=== PATIENT | female | born 1955 | race Caucasian/White ===

== ENCOUNTER 2020-01-19 13:23 | Outpatient (CLI) | payer SELFPAY ==
--- NOTE | 2020-01-19 | ECG_ITS ---
Measurements Intervals [place] Rate: 73 P: 52 NC: 150 QRS: -10 QRSD: 110 T: 31 QT: 387 QTc: 427 Interpretive Statements SINUS RHYTHM INCOMPLETE LEFT BUNDLE BRANCH BLOCK CANNOT RULE OUT SEPTAL INFARCT, AGE INDETERMINATE BORDERLINE ST ABNORMALITY- LATERAL LEADS ABNORMAL ECG Electronically Signed On 01-19-2020 14:29:31 FIELD TECHNICAL ASSISTANT by Irwin Marcus D.O.
== END 2020-01-19 13:24 | disposition home or self-care (01) ==
DX: H33.012 Retinal detachment with single break, left eye (principal); I44.7 Left bundle-branch block, unspecified
CPT/HCPCS: 93005

== ENCOUNTER 2020-09-09 18:21 | Emergency (ER) | payer MEDICARE, OTHER, SELFPAY ==
[2020-09-09 18:44] VITALS: BP 212/62; PULSE 56; RESP 20; TEMP 36.2; O2SAT 100
--- NOTE | 2020-09-09 19:14 | ED.RECABL ---
HPI - Recheck/Abnormal Lab/Rx General Chief Complaint: Recheck/Abnormal Lab/Rx Stated Complaint: BLOOD PRESSURE HIGH Time Seen by Provider: 09/09/20 19:14 Source: patient and family Mode of arrival: ambulatory Limitations: no limitations History of Present Illness HPI narrative: Patient is a 65-year-old with a history of hypertension who presents for evaluation of elevated blood pressure readings. Patient presented to her primary care physician's office after being noncompliant with her blood pressure medication over the past year. States she was there for preop clearance for cataract surgery and was noted to have high blood pressure and prompted to come to the emergency department. Patient states she feels well, no headache, blurry vision, no chest pain, no shortness of breath, no flank pain. No weakness, lightheadedness or dizziness. After clarifying with patient, patient states she has been taking Diltiazem 180 mg daily, but was told to take this twice a day by Dr. Mai before he retired. She says she has been taking it only once a day, but she tells me she did not know this was a medication used to treat blood pressure and no one ever explained that Diltiazem is a blood pressure medication. Related Data Home Medications Medication Instructions Recorded Confirmed diltiazem HCl 180 mg 180 mg PO DAILY 10/05/19 09/09/20 capsule,extended release 24 hr Allergies Allergy/AdvReac Type Severity Reaction Status Date / Time Kflzssb-Ipe-Mga Reductase Allergy Severe MUSCLE/BONE Verified 09/09/20 10:19 Inhibitor ACHES AND PAINS simvastatin Allergy Unknown muscle pain Verified 09/09/20 10:19 Review of Systems Review of Systems: Narrative: CONSTITUTIONAL: Denies fever EYES: Denies visual changes ENT: Denies rhinorrhea, congestion, sore throat, or otalgia. CARDIOVASCULAR: Denies chest pain, palpitations, or edema. RESPIRATORY: Denies cough or dyspnea. GASTROINTESTINAL: Denies abdominal pain, nausea, vomiting SKIN: Denies rash or itching. MUSCULOSKELETAL: Denies back pain NEUROLOGIC: Denies headache, numbness, or weakness. FOR[facility]LY [facility], [facility] Past Medical History Medical History (Updated 09/09/20 @ 20:53 by Luz Maria Mock MD) Atrial fibrillation (~1997) Pericarditis (~1983) Surgical History Surgical History History of appendectomy (~1964) History of colonoscopy (~11/27/12) History of foot surgery (~10/25/13) History of loop electrosurgical excision procedure (LEEP) (~1984) Hx of cholecystectomy (~12/26/13) Family History Family History Sibling Diabetes mellitus Family history of mental disorder Family history of bipolar disorder Acute myocardial infarction Family history of malignant neoplasm of breast in first degree relative Mother Cerebrovascular accident Social History Social History Smoking status: Never smoker Alcohol intake: never Exam Narrative: Exam Narrative: GENERAL: Awake, alert, conversant HEAD: Normocephalic, atraumatic. EYES: PERRLA and EOMI. ENT: Nares clear, no rhinorrhea or epistaxis. Mucous membranes moist. NECK: Supple. CHEST: No respiratory distress, breathing even and non labored HEART: Regular rate, sinus rhythm ABDOMEN:Non distended, non tender EXTREMITIES: Normal range of motion. No edema. SKIN: Warm, dry, no rash. NEURO:No focal deficits. Alert and oriented x3 Course Vital Signs Vital signs: Vital Signs Temperature 36.2 C L 09/09/20 18:44 Pulse Rate 56 L 09/09/20 18:44 Respiratory Rate 20 09/09/20 18:44 Blood Pressure 212/62 H 09/09/20 18:44 Pulse Oximetry 100 09/09/20 18:44 Temperature 36.2 C L 09/09/20 18:44 Pulse Rate 56 L 09/09/20 21:08 Respiratory Rate 20 09/09/20 18:44 Blood Pressure 127/51 L 09/09/20 21:08 Pulse Oximetry 100 09/09/20 20:25 MDM - Recheck/
--- NOTE | 2020-09-09 19:33 | ECG_ITS ---
Measurements Intervals [place] Rate: 52 P: 35 AL: 146 QRS: -16 QRSD: 114 T: 13 QT: 435 QTc: 405 Interpretive Statements SINUS BRADYCARDIA LEFT VENTRICULAR HYPERTROPHY AND ST-T CHANGE BORDERLINE ST-T WAVE ABNORMALITY- INF/HIGH LAT LEADS BORDERLINE ECG Electronically Signed On 09-09-2020 21:30:26 CDT by Irwin Marcus D.O.
[2020-09-09 20:00] LABS: Basophils Absolute Auto 0.1 K/mm3 (0.0-0.1); Basophils Percent Auto 0.5 % (0.2-1.2); Eosinophils Absolute Auto 0.5 K/mm3 (0-0.3); Eosinophils Percent Auto 5.8 % (0-4.4); Hematocrit 37.6 % (37.0-47.0); Hemoglobin 12.5 g/dL (12.0-15.0); Immature Granulocyte Absolute 0.03 K/mm3 (0.00-0.031); Immature Granulocyte Percent A 0.3 % (0-0.5); Lymphocytes Absolute Auto 2.74 K/mm3 (0.9-3.2); Lymphocytes Percent Auto 29.9 % (18.3-44.2); Mean Corpuscular HGB Conc 33.2 g/dl (32-36); Mean Corpuscular Hemoglobin 27.3 pg (26-34); Mean Corpuscular Volume 82.1 fl (80-100); Mean Platelet Volume 9.1 fl (7.4-10.4); Monocytes Absolute Auto 0.6 K/mm3 (0.1-0.6); Monocytes Percent Auto 6.1 % (2.6-8.5); Neutrophils Absolute Auto 5.3 K/mm3 (1.3-6.7); Neutrophils Percent Auto 57.4 % (45.5-73.1); Platelet Count Result 332 k/mm3 (150-375); Red Blood Count 4.58 M/mm3 (4.2-5.4); Red Cell Distribution Width 13.4 % (11.5-14.5); White Blood Count 9.2 K/mm3 (4.5-10.0)
[2020-09-09 20:10] LABS: Anion Gap 10 mmol/L (8-16); Blood Urea Nitrogen 10 mg/dL (7-17); Calcium 9.9 mg/dL (8.4-10.2); Carbon Dioxide 26 mmol/L (22-30); Chloride 103 mmol/L (98-107); Estimated Glomerular Filt Rate > 60; Glucose 146 mg/dL (65-105); Potassium 3.6 mmol/L (3.4-5.0); Sodium 139 mmol/L (137-145)
[2020-09-09 20:25] VITALS: BP 188/73; PULSE 52; O2SAT 100
[2020-09-09] MEDS: hydrALAZINE HCL 20 MG/ML VIAL IV PUSH (20:32)
[2020-09-09 20:52] VITALS: BP 129/53; PULSE 51
[2020-09-09 21:08] VITALS: BP 127/51; PULSE 56
== END 2020-09-09 21:26 | disposition home or self-care (01) ==
PROVIDERS: Emergency Provider Emergency Medicine; PCP Family Medicine
DX: I10 Essential (primary) hypertension (principal); I48.91 Unspecified atrial fibrillation; R00.1 Bradycardia, unspecified; R94.31 Abnormal electrocardiogram [ECG] [EKG]
CPT/HCPCS: 36415; 80048; 85025; 93005; 96374; 99284; J0360

== ENCOUNTER 2022-02-22 10:09 | Outpatient (CLI) | payer MEDICARE, OTHER, SELFPAY ==
--- NOTE | ~2022-02-22 | MM_ITS ---
EXAMINATION: MM screening [facility] BI w shaye HISTORY: Screening mammogram, family history of breast cancer in her sister. TECHNIQUE: Craniocaudal and mediolateral oblique 3-D tomosynthesis images were obtained and synthetic 2-D images were generated. CAD analysis was submitted and interpreted. COMPARISON: 10/09/2016, 07/21/2015 BREAST PARENCHYMAL COMPOSITION: There are scattered areas of fibroglandular density. FINDINGS: There is no suspicious mass, calcification, or architectural distortion to suggest malignan cy in either breast. There has been no suspicious interval change. IMPRESSION: 1. No mammographic evidence of malignancy. 2. Recommend routine screening mammography in one year. BI-RADS Category 1: Negative Reviewed, dictated and finalized at location A.
== END 2022-02-22 10:10 | disposition home or self-care (01) ==
PROVIDERS: PCP Family Medicine; Visit Provider Nurse Practitioner Family
DX: Z12.31 Encounter for screening mammogram for malignant neoplasm of breast (principal)
CPT/HCPCS: 77063; 77067

== ENCOUNTER 2023-11-08 07:36 | Outpatient (CLI) | payer MEDICARE, SELFPAY ==
--- NOTE | ~2023-11-08 | MM_ITS ---
EXAMINATION: MM screening [facility] BI w shaye HISTORY: Screening TECHNIQUE: Craniocaudal and mediolateral oblique 3-D tomosynthesis images were obtained and synthetic 2-D images were generated. CAD analysis was submitted and interpreted. COMPARISON: Comparison to multiple prior studies sequentially, with oldest reviewed study dated 09/25. BREAST PARENCHYMAL COMPOSITION: Breast composed of scattered areas of fibroglandular density FINDINGS: There are developing bilateral masses/asymmetries involving the upper outer quadrants of gutierrez th breasts. There are no suspicious calcifications. IMPRESSION: 1. Developing bilateral masses/asymmetries of the upper outer quadrants. 2. Additional mammographic views and possible breast ultrasound are recommended. BI-RADS Category 0: Incomplete: Needs additional imaging evaluation. Reviewed, dictated and finalized at location A. SCOPE TECHNICIAN IMPRESSION: 1. Developing bilateral masses/asymmetries of the upper outer quadrants. 2. Additional mammographic views and possible breast ultrasound are recommended . BI-RADS Category 0: Incomplete: Needs additional imaging evaluation.
== END 2023-11-08 07:37 | disposition home or self-care (01) ==
LOC: ANHIMG 07:40
PROVIDERS: PCP Family Medicine; Visit Provider Nurse Practitioner Family
DX: Z12.31 Encounter for screening mammogram for malignant neoplasm of breast (principal); R92.8 Other abnormal and inconclusive findings on diagnostic imaging of breast
CPT/HCPCS: 77063; 77067

== ENCOUNTER 2023-11-29 08:46 | Outpatient (CLI) | payer MEDICARE, SELFPAY ==
--- NOTE | ~2023-11-29 | DEXA_ITS ---
Bone Density Report Name: SIMEON NARVAEZ Age: 68 Sex: Female Ethnicity: White Date of : 1955 Indication: postmenopausal; screening for osteoporosis; height loss; Referring Provider: RIGOBERTO WORRELL Study: Bone densitometry was performed. Exam Date: November 29, 2023 Accession number: [id number] Bone Density: Region BMD T-score Z-score Classification AP Spine(L1-L4) 1.093 0.4 2.4 Normal Femoral Neck (Left) 0.877 0.3 2.0 Normal Total Hip (Left) 0.926 -0.1 1.3 Normal Femoral Neck (Right) 0.915 0.6 2.3 Normal Total Hip (Right) 1.003 0.5 1.9 Normal Total Hip Mean 0.964 0.2 1.6 Normal World Health Organization criteria for BMD impression classify patients as: Normal (T-score at or above -1.0), Osteopenia (T-score between -1.0 and -2.5), or Osteoporosis (T-score at or below -2.5). 10-year Fracture Risk: FRAX not reported because: All T-scores for Spine Total, Hip Total, Femoral Neck at or above -1.0 Clinical Information Provided by Patient: Has used the following medications: Vitamin D Patient maximum height was 64 Menopause Age: 43 No regular weight bearing exercise Onset of menses at age 13 Number of children 1 Impression: The patient has normal bone mass. Discussion: BONE DENSITY IS ABOVE THE MINIMUM DESIRABLE LEVEL AT ALL SKELETAL SITES TESTED. This patient?s bone mineral density is above the minimum desirable level (T-score -1.0 or better) at all sites measured. The patient should follow a healthful lifestyle (good nutrition with adequate calcium and vitamin D, and appropriate weight-bearing exercise). Follow-Up: Consider repeating this study in 5 years or sooner if there is some new clinical indication. Reported by: [facility] on 11/29/2023 9:30:00 AM. Reviewed, dictated and finalized at location [facility]
== END 2023-11-29 08:47 | disposition home or self-care (01) ==
LOC: ANHIMG 08:49
PROVIDERS: PCP Nurse Practitioner Family; Visit Provider Nurse Practitioner Family
DX: Z78.0 Asymptomatic menopausal state (principal)
CPT/HCPCS: 77080

== ENCOUNTER 2023-12-02 12:43 | Outpatient (CLI) | payer MEDICARE, SELFPAY ==
--- NOTE | ~2023-12-02 | MMUS_ITS ---
EXAMINATION: MM diagnostic [facility] BI w shaye, US breast RT limited HISTORY: Possible bilateral breast masses on screening mammogram TECHNIQUE: Additional 3-D tomosynthesis images of the breasts were performed and synthetic 2-D images were generated. CAD analysis was submitted and interpreted. High resolution limited right breast ult rasound was performed. COMPARISON: 11/08/2023, 02/22/2022, 10/09/2016 FINDINGS: MAMMOGRAPHIC FINDINGS: Left breast: There is stable focal asymmetry in the upper outer quadrant of the left breast. No suspi cious mass, calcification, or architectural distortion are identified. Right breast: No suspicious mass, calcification, or architectural distortion are identified with spot compression of the breast. ULTRASOUND: There is a 10 mm x 4 mm oval, circumscribed, parallel, hypoechoic mass versus fibroglandular lobule a t the 11:00 location 3 cm from the nipple. Suspicious or internal vascularity are identified IMPRESSION: 1. Probably benign findings of the right breast. 2. Recommend 6 month follow-up right diagnostic mammogram and ultrasound. BI-RADS category 3, probably benign findings. Reviewed, dictated and finalized at location A. CIATE PROFESSOR OF THEOLOGY IMPRESSION: 1. Probably benign findings of the right breast. 2. Recommend 6 month follow-up right diagnostic mammogram and ultrasound. BI-RADS category 3, probably benign findings.
== END 2023-12-02 12:44 | disposition home or self-care (01) ==
LOC: ANHIMG 12:45
PROVIDERS: PCP Nurse Practitioner Family; Visit Provider Nurse Practitioner Family
DX: R92.8 Other abnormal and inconclusive findings on diagnostic imaging of breast (principal)
CPT/HCPCS: 76642; 77062; 77066; G0279